=== PATIENT | female | born 1970 | race Two or more races ===

== ENCOUNTER → 2017-10-17 | Emergency (ER) | payer OTHER ==
[~2017-10-17] VITALS: Ht 172.7 cm; Wt 86.2 kg
[~2017-10-17] MED LIST: NKM
[2017-10-17 09:56] VITALS: BP 135/91
--- NOTE | 2017-10-17 15:16 | Emergency Room Report ---
History of Present Illness General Chief Complaint: Earache Source: Patient Present Illness HPI 47-year-old female with a right ear cerumen serum impaction for 4-5 days. States it usually only happened on her right ear. Has been using drops without relief Allergies: Coded Allergies: No Known Allergies (Unverified , 10/17/17) Patient History Past Medical History: see triage record Past Surgical History: none Pertinent Family History: none Last Menstrual Period: Six weeks ago (Irregular) Now: No Reviewed Nursing Documentation: PMH: Agreed, PSxH: Agreed Nursing Documentation-PMH Past Medical History: No Stated History Review of Systems All Other Systems: negative except mentioned in HPI Physical Exam Vital Signs Date Time Temp Pulse Resp B/P (MAP) Pulse Ox O2 Delivery O2 Flow Rate FiO2 10/17/17 09:12 97.5 80 16 135/91 99 Room Air Sp02 EP Interpretation: reviewed, normal General Appearance: normal inspection, well appearing, no apparent distress, alert, GCS 15, non-toxic Head: normocephalic, atraumatic Eyes: bilateral eye normal inspection, bilateral eye PERRL, bilateral eye EOMI ENT: other - R ear with soft cerumen wax Neck: normal inspection, full range of motion, supple Respiratory: normal inspection, lungs clear, normal breath sounds, no respiratory distress, no retraction, no wheezing, speaking full sentences, chest symmetrical Cardiovascular #1: normal inspection, regular rate, rhythm, normal capillary refill Cardiovascular #2: 2+ radial (R), 2+ radial (L) Gastrointestinal: normal inspection, non tender, soft, non-distended, no guarding Musculoskeletal: normal inspection, back normal, normal range of motion, non- tender Neurologic: normal inspection, alert, oriented x3, responsive, motor strength/ tone normal, sensory intact, normal gait, speech normal Psychiatric: normal inspection, judgement/insight normal, memory normal Skin: normal inspection, normal color, no rash, warm/dry, well hydrated, normal turgor Procedures Additional Procedure Procedure Narrative Procedure: ear wax removal used with curette ++ear wax obtained pt tolerated procedure well no TM perforation Medical Decision Making Diagnostic Impression: Primary Impression: Excessive cerumen in right ear canal ER Course 47-year-old female with right ear wax DDX: Cerumen impaction Plan: Cerumen impaction ER course: Patient has remained stable during ED stay. Ear wax removed Disposition: Patient is to be discharged to home. Please note that this Emergency Department Report was dictated using [employer] software, occasionally this can lead to erroneous entry secondary to interpretation by the dictation equipment Last Vital Signs Date Time Temp Pulse Resp B/P (MAP) Pulse Ox O2 Delivery O2 Flow Rate FiO2 10/17/17 09:56 97.5 16 135/91 99 Room Air 10/17/17 09:12 80 Disposition: HOME, SELF-CARE Condition: Improved [facility] Patient Instructions: Karen Kurtz M.D. Oct 17, 2017 15:16
== END | disposition home or self-care (01) ==
LOC: EMR 09:14
DX: H61.21 Impacted cerumen, right ear (principal)
CPT/HCPCS: 99283